=== PATIENT | male | born 1990 | race Caucasian/White ===

== ENCOUNTER 2016-11-04 16:55 | Emergency (ER) | payer SELFPAY ==
[2016-11-04 17:21] VITALS: BP 143/95
[2016-11-04] MEDS ORDERED: Azithromycin TAB* 250 MG PO ONE (17:32)
--- NOTE | 2016-11-04 18:02 | UC ---
Complaint Male HPI - HPI Summary HPI Summary: Patient presents to with complaints of 7 day onset penile discharge, dysuria, and generalized lower abdominal discomfort. He report unprotected sexual intercourse. Denies fever, chills, nausea, vomiting, testicular pain, swelling, or trauma. States his symptoms came on gradually. Denies sore throat, rashes, charoid ulcers prior to penile discharge. - History of Current Complaint Chief Complaint: UCGU Stated Complaint: GROIN PAIN Time Seen by Provider: 11/04/16 17:22 Hx Obtained From: Patient Onset/Duration: Sudden Onset, Lasting Days Severity Initially: Mild Severity Currently: Moderate Location: Penis - urethral discharge. Associated Signs And Symptoms: Positive: Penile Discharge - Risk Factors Testicular Torsion: Negative - Allergies/Home Medications Allergies/Adverse Reactions: Allergies Allergy/AdvReac Type Severity Reaction Status Date / Time No Known Allergies Allergy Verified 11/04/12 18:28 Home Medications: Home Medications Ibuprofen [Ibuprofen 200 MG] 200 mg PO 11/04/16 [History] PMH/Surg Hx/FS Hx/Imm Hx Previously Healthy: Yes - Surgical History Surgical History: None - Family History Known Family History: Positive: None - denies pfh of cad, htn,cva. - Social History Occupation: Employed Full-time Lives: Alone Alcohol Use: Occasionally Substance Use Type: None Smoking Status (MU): Never Smoked Tobacco Review of Systems Constitutional: Negative Skin: Negative Eyes: Negative ENT: Negative Respiratory: Negative Cardiovascular: Negative Gastrointestinal: Negative Genitourinary: Dysuria, Other - penile discharge. Musculoskeletal: Negative Neurological: Negative All Other Systems Reviewed And Are Negative: Yes Physical Exam Triage Information Reviewed: Yes Appearance: Well-Appearing Vital Signs: Initial Vital Signs Temp 99.2 F 11/04/16 17:18 Pulse 71 11/04/16 17:18 Resp 18 11/04/16 17:18 BP 143/95 11/04/16 17:18 Pulse Ox 100 11/04/16 17:18 Vital Signs Reviewed: Yes Eye Exam: Normal ENT Exam: Normal Respiratory Exam: Normal Cardiovascular Exam: Normal Abdominal Exam: Normal Musculoskeletal Exam: Normal Skin Exam: Normal Complaint Male Course/Dx - Course Course Of Treatment: Presents with confirmed unprotected intercourse, with penile discharge. UA was obtained for CT/GC. Patient was treated presumptively for Chlymydia with 1 gm of azithromycin. He is aware that this treatment was based on clinical findings and when the urine returns additional treatment may be needed. He was also instructed to have all partners treated, and no intercourse until he has been rechecked and cleared of all STD's. At the time of discharge patient was stable. - Differential Dx/Diagnosis Differential Diagnosis/HQI/PQRI: Other - Urethritis Provider Diagnoses: Urethritis Discharge - Discharge Plan Condition: Stable Disposition: HOME Patient Education Materials: Nonspecific Urethritis in Men (ED) Referrals: Ivon HOBBS,Duran Brewer [Primary Care Provider] -
== END 2016-11-04 18:00 | disposition home or self-care (01) ==
LOC: UCEAST 16:55
DX: N34.2 Other urethritis (principal)
CPT/HCPCS: 87491; 87591; 99212; A9270-GY; G0463